=== PATIENT | female | born 1965 | race Two or more races ===

== ENCOUNTER 2018-08-25 13:24 | Emergency (ER) | payer BC ==
[~2018-08-25] VITALS: Ht 160 cm; Wt 90.7 kg
[2018-08-25] MEDS ORDERED: HYDROcodone-ACET 10/325MG TAB PO ONE (15:45)
[2018-08-25 16:20] VITALS: BP 142/82
== END 2018-08-25 16:27 | disposition home or self-care (01) ==
LOC: ER 13:24 → EDBD 13:24 → ER 16:27
DX: S29.011A Strain of muscle and tendon of front wall of thorax, initial encounter (principal); V43.52XA Car driver injured in collision with other type car in traffic accident, initial encounter; Y93.89 Activity, other specified; Y99.8 Other external cause status; Y92.410 Unspecified street and highway as the place of occurrence of the external cause
CPT/HCPCS: 71250; 74176; 93005

== ENCOUNTER 2019-02-24 04:13 | Emergency (ER) | payer BC ==
[~2019-02-24] VITALS: Ht 160 cm; Wt 86.2 kg
[2019-02-24 05:50] LABS: Urine Amorphous Crystal FEW /hpf (None Seen); Urine Bacteria MOD /hpf (None Seen); Urine Blood Negative /uL (Negative); Urine Mucus FEW (None Seen); Urine Specific Gravity 1.021 (1.001-1.035); Urine WBC 4 /hpf (0 - 5)
[2019-02-24 06:08] LABS: INR 1.01 (0.9-1.15); Prothrombin Time 10.8 sec (9.27-12.13)
[2019-02-24 06:10] LABS: Basophils # (auto) 0 uL; Basophils % (auto) 0.2 % (0.0-2.0); Eosinophils # (auto) 0.2 uL; Eosinophils % (auto) 2.1 % (0.0-7.0); Hematocrit 37.8 % (36.0-46.0); Hemoglobin 12.9 g/dL (12.2-16.2); Lymphocytes # (auto) 2.9 uL; Lymphocytes % (auto) 33.4 % (10.0-50.0); Mean Corpuscular Hemoglobin 29.2 pg (28.0-32.0); Monocytes # (auto) 0.7 uL; Monocytes % (auto) 7.8 % (0.0-12.0); Neutrophils # (auto) 4.8 uL; Neutrophils % (auto) 56.5 % (37.0-80.0); Platelet Count (auto) 294 10^3/uL (140-450); Red Cell Distribution Width 13.1 % (11.8-14.3); White Blood Cell 8.6 10^3/uL (4.4-10.8)
[2019-02-24 06:17] LABS: Albumin 3.4 g/dL (3.4-5.0); Amylase 53 U/L (25-115); Anion Gap 9 (5-15); BUN/Creatinine Ratio 16.4; Blood Urea Nitrogen 9 mg/dL (7-18); Calcium 8.5 mg/dL (8.5-10.1); Carbon Dioxide 25 mmol/L (21-32); Chloride 108 mmol/L (98-107); GFR African American 149 mL/min; GFR Non-African American 123 mL/min; Glucose 99 mg/dL (74-106); Lipase 92 U/L (73-393); Magnesium 2.1 mg/dL (1.6-2.6); Potassium 3.7 mmol/L (3.5-5.1); Sodium 142 mmol/L (136-145)
[2019-02-24 06:22] LABS: Alanine Aminotransferase 22 U/L (13-56); Alkaline Phosphatase 87 U/L (45-117); Aspartate Aminotransferase 18 U/L (15-37); Bilirubin, Total 0.3 mg/dL (0.2-1.0); Total Protein 7.5 g/dL (6.4-8.2)
[2019-02-24] MEDS ORDERED: ONDANSETRON HCL 4 MG/2 ML VIAL IV ONE (08:00)
[2019-02-24] MEDS ORDERED: MORPHINE SULF INJ 2 MG/ML SYRINGE 1ML IV ONE (08:00)
[2019-02-24 11:15] VITALS: BP 119/71
== END 2019-02-24 12:01 | disposition home or self-care (01) ==
LOC: ER 04:13
DX: K44.9 Diaphragmatic hernia without obstruction or gangrene (principal); N39.0 Urinary tract infection, site not specified
CPT/HCPCS: 36415; 71045; 74176; 76705; 80053; 81001; 82150; 83690; 83735; 84484; 85025; 85610; 85730; 96374; 96375; 99284; J2270; J2405